=== PATIENT | female | born 1930 | race Caucasian/White ===

== ENCOUNTER 2017-07-31 04:34 | Inpatient (IN) | payer MEDICARE, OTHER ==
[~2017-07-31] VITALS: Ht 154.9 cm; Wt 69.2 kg
[2017-07-31 05:27] LABS: Basophils # (auto) 0.1 uL; Hematocrit 25.5 % (36.0-46.0); Hemoglobin 7.9 g/dL (12.2-16.2); Mean Corpuscular Hemoglobin 23.4 pg (28.0-32.0); Monocytes # (auto) 0.9 uL
[2017-07-31 05:31] LABS: Basophils % (auto) 0.7 % (0.0-2.0); Eosinophils # (auto) 0.2 uL; Eosinophils % (auto) 2.2 % (0.0-7.0); Lymphocytes # (auto) 2.2 uL; Lymphocytes % (auto) 19.8 % (10.0-50.0); Mean Corpuscular Volume 75.6 fL (80.0-100.0); Monocytes % (auto) 7.9 % (0.0-12.0); Neutrophils # (auto) 7.8 uL; Neutrophils % (auto) 69.4 % (37.0-80.0); Nucleated Red Blood Cells % 0.2 %; Platelet Count (auto) 338 10^3/uL (140-450); Red Blood Cells 3.38 10^6/uL (4.0-5.20); Red Cell Distribution Width 16.5 % (11.8-14.3); White Blood Cell 11.2 10^3/uL (4.4-10.8)
[2017-07-31 05:50] LABS: Alanine Aminotransferase 20 U/L (13-56); Albumin 3.5 g/dL (3.4-5.0); Alkaline Phosphatase 99 U/L (45-117); Amylase 63 U/L (25-115); Anion Gap 6 (5-15); Aspartate Aminotransferase 32 U/L (15-37); BUN/Creatinine Ratio 15.6; Bilirubin, Total 0.5 mg/dL (0.2-1.0); Blood Urea Nitrogen 17 mg/dL (7-18); Calcium 8.1 mg/dL (8.5-10.1); Carbon Dioxide 27 mmol/L (21-32); Chloride 106 mmol/L (98-107); GFR African American 61 mL/min; GFR Non-African American 50 mL/min; Glucose 174 mg/dL (74-106); Lipase 459 U/L (73-393); Potassium 4.6 mmol/L (3.5-5.1); Sodium 139 mmol/L (136-145); Total Protein 6.9 g/dL (6.4-8.2)
[2017-07-31] MEDS ORDERED: VENL37.56 PO (07:35)
[2017-07-31] MEDS ORDERED: ACET30TA15 PO (07:46)
[2017-07-31] MEDS ORDERED: ACETAMINOPHEN 325 MG TAB PO PRN (10:15)
[2017-07-31] MEDS ORDERED: MORPHINE SULFATE 4 MG/ML SYR/VIAL IV PRN ×2 (10:15)
[2017-07-31] MEDS ORDERED: DEXTROSE (50%) 50ML SYRG IV PRN (10:15)
[2017-07-31] MEDS ORDERED: NITROGLYCERIN 0.4 MG SL TAB SL PRN (10:15)
[2017-07-31] MEDS ORDERED: DOCUSATE SOD 100 MG CAP PO PRN (10:15)
[2017-07-31] MEDS ORDERED: HYDROcodone-ACET 5/325MG TAB PO PRN (10:15)
[2017-07-31] MEDS ORDERED: TEMAZEPAM 15 MG CAP PO PRN (10:15)
[2017-07-31] MEDS ORDERED: ONDANSETRON HCL 4 MG/2 ML VIAL IV PRN (10:15)
[2017-07-31] MEDS ORDERED: cefTRIAXone 1GM/10ml IVPUSH 10 ML IV ONE (10:15)
[2017-07-31] MEDS ORDERED: LORazepam 0.5 MG TAB PO PRN (10:15)
[2017-07-31] MEDS: SODIUM CHLORIDE 0.9% 1,000 ML IV SCH (10:29)
[2017-07-31] MEDS ORDERED: FAMOTIDINE 20 MG TAB PO SCH (10:30)
[2017-07-31] MEDS: RAMIPRIL 2.5 MG CAP PO SCH (10:30)
[2017-07-31] MEDS: LABETALOL HCL 200 MG TAB PO SCH (10:34)
[2017-07-31] MEDS: NIFEdipine ER 30 MG TAB PO SCH (10:34)
[2017-07-31] MEDS: InsuLIN REG 1unit/0.01ml Soln (100units/ml) SC SCH ×3 (11:30→22:00)
[2017-07-31] MEDS: ACCU-CHEK COMFORT CURVE STRIP VI SCH ×3 (11:51→22:21)
[2017-07-31] MEDS: metroNIDAZOLE 500MG/100ML 100 ML IV SCH ×2 (12:23→20:34)
[2017-07-31 12:38] LABS: Hematocrit 23.8 % (36.0-46.0); Hemoglobin 7.4 g/dL (12.2-16.2)
[2017-07-31 13:00] VITALS: BP 124/56
[2017-07-31] MEDS ORDERED: ALBUTEROL SULF 2.5 MG/0.5ML(0.5%) NEB SOLN NEB PRN (15:15)
[2017-07-31 17:00] VITALS: BP 118/54
[2017-07-31 18:30] LABS: Hematocrit 23.4 % (36.0-46.0); Hemoglobin 7.2 g/dL (12.2-16.2)
[2017-07-31 19:00] VITALS: BP 118/54
[2017-07-31] MEDS ORDERED: METF-370 PO (20:04)
[2017-07-31] MEDS ORDERED: RAMI2.5C33 PO (20:04)
[2017-07-31 22:00] VITALS: BP 116/54
[2017-07-31] MEDS: ATORVASTATIN 20 MG TAB PO SCH (22:21)
[2017-07-31] MEDS: PANTOPRAZOLE 40 MG/10 ML VIAL IV SCH (22:22)
[2017-07-31 23:45] VITALS: BP 136/67
[2017-08-01] VITALS (8 sets, daily range): BP systolic 125–142; BP diastolic 44–71
[2017-08-01] MEDS: SODIUM CHLORIDE 0.9% 1,000 ML IV SCH ×2 (02:51→20:29)
[2017-08-01] MEDS: metroNIDAZOLE 500MG/100ML 100 ML IV SCH ×3 (04:04→20:29)
[2017-08-01] MEDS: InsuLIN REG 1unit/0.01ml Soln (100units/ml) SC SCH ×4 (06:15→22:25)
[2017-08-01] MEDS: ACCU-CHEK COMFORT CURVE STRIP VI SCH ×4 (06:16→22:24)
[2017-08-01 06:48] LABS: Basophils # (auto) 0 uL; Eosinophils # (auto) 0 uL; Hemoglobin 9.3 g/dL (12.2-16.2); Lymphocytes # (auto) 0.9 uL; Monocytes % (auto) 0.8 % (0.0-12.0); Neutrophils # (auto) 5.1 uL; Nucleated Red Blood Cells % 0.1 %; Red Cell Distribution Width 16.8 % (11.8-14.3)
[2017-08-01 06:51] LABS: Basophils % (auto) 0.4 % (0.0-2.0); Hematocrit 28.8 % (36.0-46.0); Lymphocytes % (auto) 14.8 % (10.0-50.0); Mean Corpuscular Hemoglobin 24.8 pg (28.0-32.0); Mean Corpuscular Hgb Conc. 32.2 g/dL (32.0-36.0); Mean Corpuscular Volume 76.8 fL (80.0-100.0); Monocytes # (auto) 0.1 uL; Platelet Count (auto) 290 10^3/uL (140-450); Red Blood Cells 3.75 10^6/uL (4.0-5.20); White Blood Cell 6.1 10^3/uL (4.4-10.8)
[2017-08-01 07:07] LABS: Albumin 3.3 g/dL (3.4-5.0); BUN/Creatinine Ratio 14.8; Calcium 8.6 mg/dL (8.5-10.1); Potassium 4.3 mmol/L (3.5-5.1)
[2017-08-01 07:10] LABS: Bilirubin, Total 1.4 mg/dL (0.2-1.0); Total Protein 6.5 g/dL (6.4-8.2)
[2017-08-01 08:05] LABS: INR 1.16 (0.9-1.15); Partial Thromboplastin Time 24.6 sec (22.64-33.71); Prothrombin Time 12.7 sec (9.37-12.3)
[2017-08-01] MEDS: cefTRIAXone 1GM/10ml IVPUSH 10 ML IV SCH (09:55)
[2017-08-01] MEDS: PANTOPRAZOLE 40 MG/10 ML VIAL IV SCH (09:55)
[2017-08-01] MEDS: metFORMIN HYDROCHLORIDE 500 MG TAB PO SCH (10:00)
[2017-08-01] MEDS: MULTIPLE VITAMIN TAB PO SCH (10:00)
[2017-08-01] MEDS: LABETALOL HCL 200 MG TAB PO SCH (10:34)
[2017-08-01] MEDS: NIFEdipine ER 30 MG TAB PO SCH (10:35)
[2017-08-01] MEDS: RAMIPRIL 2.5 MG CAP PO SCH (10:36)
[2017-08-01] MEDS ORDERED: MIDAZOLAM HCL 5 MG/ML-1ML VIAL ONE (11:14)
[2017-08-01] MEDS ORDERED: LIDOCAINE VISCOUS 2% 15ML UD ONE (11:14)
[2017-08-01] MEDS ORDERED: fentaNYL CITRATE 100 MCG/2 ML VL ONE (11:14)
[2017-08-01] MEDS ORDERED: diphenhdrAMINE HCL 50 MG/1 ML VL ONE (11:15)
[2017-08-01] MEDS: ATORVASTATIN 20 MG TAB PO SCH (22:24)
[2017-08-01] MEDS: PANTOPRAZOLE 40 MG TAB PO SCH (22:25)
[2017-08-02] MEDS: metroNIDAZOLE 500MG/100ML 100 ML IV SCH ×2 (04:24→11:52)
[2017-08-02 05:00] VITALS: BP 127/64
[2017-08-02] MEDS: ACCU-CHEK COMFORT CURVE STRIP VI SCH ×3 (06:23→17:00)
[2017-08-02] MEDS: InsuLIN REG 1unit/0.01ml Soln (100units/ml) SC SCH ×3 (06:24→17:00)
[2017-08-02 07:03] LABS: Eosinophils # (auto) 0.1 uL; Hemoglobin 9.6 g/dL (12.2-16.2); Mean Corpuscular Hemoglobin 24.6 pg (28.0-32.0); Mean Corpuscular Hgb Conc. 32.2 g/dL (32.0-36.0); Nucleated Red Blood Cells % 0.1 %; Red Blood Cells 3.89 10^6/uL (4.0-5.20)
[2017-08-02 07:07] LABS: Basophils # (auto) 0.1 uL; Basophils % (auto) 0.7 % (0.0-2.0); Eosinophils % (auto) 0.7 % (0.0-7.0); Hematocrit 29.8 % (36.0-46.0); Lymphocytes # (auto) 3.3 uL; Mean Corpuscular Volume 76.6 fL (80.0-100.0); Monocytes % (auto) 9.8 % (0.0-12.0); Neutrophils # (auto) 5.6 uL; Neutrophils % (auto) 55.8 % (37.0-80.0); Platelet Count (auto) 300 10^3/uL (140-450); Red Cell Distribution Width 17.4 % (11.8-14.3); White Blood Cell 10.1 10^3/uL (4.4-10.8)
[2017-08-02 07:16] LABS: BUN/Creatinine Ratio 12.2; Calcium 8.9 mg/dL (8.5-10.1); Potassium 3.6 mmol/L (3.5-5.1)
[2017-08-02 07:58] VITALS: BP 127/52
[2017-08-02 08:00] VITALS: BP 127/52
[2017-08-02] MEDS: metFORMIN HYDROCHLORIDE 500 MG TAB PO SCH (10:00)
[2017-08-02] MEDS: LABETALOL HCL 200 MG TAB PO SCH (10:04)
[2017-08-02] MEDS: cefTRIAXone 1GM/10ml IVPUSH 10 ML IV SCH (10:04)
[2017-08-02] MEDS: MULTIPLE VITAMIN TAB PO SCH (10:05)
[2017-08-02] MEDS: PANTOPRAZOLE 40 MG TAB PO SCH (10:05)
[2017-08-02] MEDS: NIFEdipine ER 30 MG TAB PO SCH (10:05)
[2017-08-02] MEDS: RAMIPRIL 2.5 MG CAP PO SCH (10:05)
[2017-08-02 12:00] VITALS: BP_SYST 127; BP_SYST 155; BP_DIAS 62; BP_DIAS 92
[2017-08-02] MEDS: SODIUM CHLORIDE 0.9% 1,000 ML IV SCH (12:11)
[2017-08-02 15:06] VITALS: BP 127/62
== END 2017-08-02 17:08 | disposition home or self-care (01) | DRG 392 ==
LOC: EDBD 04:34 → ER 04:35 → OVERFLOW 04:36 → EAST 11:29
PROVIDERS: ADMIT Internal Medicine; ATTEND Internal Medicine
PROC: 30233N1 Transfusion of Nonautologous Red Blood Cells into Peripheral Vein, Percutaneous Approach (ICD-10-PCS; 2017-07-31)
PROC: 0DB68ZX Excision of Stomach, Via Natural or Artificial Opening Endoscopic, Diagnostic (ICD-10-PCS; principal; 2017-08-01 16:14)
DX: K29.70 Gastritis, unspecified, without bleeding (principal); E11.21 Type 2 diabetes mellitus with diabetic nephropathy; D64.9 Anemia, unspecified; E44.1 Mild protein-calorie malnutrition; N18.3 Chronic kidney disease, stage 3 (moderate); E83.51 Hypocalcemia; I25.10 Atherosclerotic heart disease of native coronary artery without angina pectoris; J45.20 Mild intermittent asthma, uncomplicated; E11.22 Type 2 diabetes mellitus with diabetic chronic kidney disease; I12.9 Hypertensive chronic kidney disease with stage 1 through stage 4 chronic kidney disease, or unspecified chronic kidney disease; K44.9 Diaphragmatic hernia without obstruction or gangrene; R91.1 Solitary pulmonary nodule; Z68.28 Body mass index [BMI] 28.0-28.9, adult; I25.2 Old myocardial infarction; Z83.3 Family history of diabetes mellitus; Z90.710 Acquired absence of both cervix and uterus; Z90.49 Acquired absence of other specified parts of digestive tract; Z80.9 Family history of malignant neoplasm, unspecified
CPT/HCPCS: 36415; 36430; 43239; 71045; 74176; 80048; 80053; 82150; 82962; 83036; 83540; 83690; 84443; 84484; 85014; 85018; 85025; 85610; 85730; 86850; 86900; 86901; 86920; 93005; 96374; 99291; C9113; J1815; J2250; J3490